=== PATIENT | male | born 1985 | race Caucasian/White ===

== ENCOUNTER 2018-05-02 14:26 | Emergency (ER) | payer OTHER ==
[~2018-05-02] VITALS: Ht 162.6 cm; Wt 61.2 kg
[2018-05-02 14:35] VITALS: BP 119/79
[2018-05-02] MEDS ORDERED: KETOROLAC 60 MG/2 ML VIAL IM ONE (15:20)
--- NOTE | 2018-05-02 15:38 | NUR ---
PATIENT CAME IN THE ER COMPLAINING OF RIGHT LOWER BACK PAIN. 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 PATIENT HAS DIFFICULTY BENDING AND LIFTING. WHEN ASSESSED, PATIENT HAD NO PAIN TO TOUGH.HE STATES HE IS REALLY UNCONFORTABLE. HE HAS A PAIN LEVEL OF 10/10. PATIENT IS ALERT AND ORIENTED XS 4. PATIENTS MEDICAL HISTORY IS HIGH CHOLESTEROL.
--- NOTE | 2018-05-02 15:44 | NUR ---
MEDICATED ORDERED, WILLMONITOR FOR ADVERSE SIDE EFFECTS.
[2018-05-02 16:21] VITALS: BP 129/80
--- NOTE | 2018-05-02 16:30 | NUR ---
Patient discharged with v/s stable. Written and verbal after care instructions given and explained. Patient alert, oriented and verbalized understanding of instructions. Ambulatory with steady gait. All questions addressed prior to discharge. ID band removed. Patient advised to follow up with PMD. Rx of ROBAXIN,IBUPROFEN given. Patient educated on indication of medication including possible reaction and side effects. Opportunity to ask questions provided and answered.
== END 2018-05-02 16:30 | disposition home or self-care (01) ==
LOC: MED 14:26
DX: M54.5 Low back pain (principal)
CPT/HCPCS: 96372; 99283; J1885

== ENCOUNTER 2018-05-05 12:14 | Emergency (ER) | payer OTHER ==
[~2018-05-05] VITALS: Ht 162.6 cm; Wt 68.0 kg
[2018-05-05 12:19] VITALS: BP 121/79
[2018-05-05] MEDS ORDERED: KETOROLAC 60 MG/2 ML VIAL IM ONE (12:50)
[2018-05-05] MEDS ORDERED: LORazepam 2 MG/ML VIAL IM ONE (12:50)
[2018-05-05] MEDS ORDERED: LACTULOSE 20 GM/30 ML UDC PO ONE (12:50)
[2018-05-05 14:30] VITALS: BP 123/76
[2018-05-05 14:58] LABS: BARBITURATE, URINE NEG. ng/ml (NEG <=200); BENZODIAZEPINE, URINE NEG. ng/mL (NEG <=200); CANNABINOID, URINE NEG. ng/mL (NEG <=50); COCAINE, URINE NEG. ng/mL (NEG <=300); OPIATE, URINE NEG. ng/mL (NEG <=2000); PHENCYCLIDINE SCREEN,URINE NEG. ng/mL (NEG <=25)
== END 2018-05-05 14:30 | disposition home or self-care (01) ==
LOC: MED 12:14
DX: G89.29 Other chronic pain (principal); M54.5 Low back pain
CPT/HCPCS: 72100; 80305; 96372; 99285; J1885; J2060

== ENCOUNTER 2020-12-16 16:20 | Emergency (ER) | payer OTHER ==
[~2020-12-16] VITALS: Ht 170.2 cm; Wt 76.2 kg
[2020-12-16 16:25] VITALS: BP 132/92
[2020-12-16] MEDS ORDERED: NACL 0.9% 1,000 ML IV ONE (16:50)
[2020-12-16 17:03] LABS: BASOPHILS % (AUTO) 0.4 % (0.0-2.0); EOSINOPHILS % (AUTO) 0.3 % (0.0-4.0); HEMATOCRIT 45.1 % (36-52); HEMOGLOBIN 15.4 g/dL (12.0-18.0); LYMPHOCYTES # (AUTO) 0.4 K/uL (2.0-11.5); LYMPHOCYTES % (AUTO) 3.9 % (20.5-51.1); MEAN CORPUSCULAR HEMOGLOBIN 30 pg (27-31); MEAN CORPUSCULAR HGB CONC 34 g/dL (33-37); MEAN CORPUSCULAR VOLUME 88.4 fL (80-94); MONOCYTES % (AUTO) 8.8 % (1.7-9.3); NEUTROPHILS # (AUTO) 9.6 K/uL (1.8-7.7); NEUTROPHILS % (AUTO) 86.6 % (42.2-75.2); PLATELET COUNT (AUTO) 252 K/uL (140-450); RED CELL DISTRIBUTION WIDTH 12.9 % (11.6-13.7); WHITE BLOOD COUNT (AUTO) 11.1 K/uL (4.8-10.8)
[2020-12-16 17:13] LABS: PROTHROMBIN TIME 10.3 secs (10.8-13.4)
[2020-12-16 17:17] LABS: ALBUMIN 4.4 g/dL (3.4-5.0); ANION GAP 13.6 (8-16); CARBON DIOXIDE 27.5 mmol/L (21-32); CREATININE 1.1 mg/dL (0.6-1.3); POTASSIUM 4.1 mmol/L (3.5-5.1); TOTAL BILIRUBIN 0.3 mg/dL (0.0-1.0)
[2020-12-16] MEDS ORDERED: METOPROLOL 5 MG/5 ML VIAL IVP ONE (19:05)
[2020-12-16] MEDS ORDERED: METOPROLOL 25 MG TAB PO ONE (19:05)
[2020-12-16 19:22] LABS: BARBITURATE, URINE NEGATIVE ng/ml (NEG <=200); BENZODIAZEPINE, URINE NEGATIVE ng/mL (NEG <=200); CANNABINOID, URINE NEGATIVE ng/mL (NEG <=50); COCAINE, URINE NEGATIVE ng/mL (NEG <=300); OPIATE, URINE NEGATIVE ng/mL (NEG <=2000); PHENCYCLIDINE SCREEN,URINE NEGATIVE ng/mL (NEG <=25)
[2020-12-16 19:31] LABS: FREE T4 (FREE THYROXINE) 0.87 ng/dL (0.76-1.46); THYROID STIMULATING HORMONE 0.72 uIU/mL (0.34-3.74)
[2020-12-16 20:38] VITALS: BP 140/89
== END 2020-12-16 20:30 | disposition home or self-care (01) ==
LOC: MED 16:20
DX: R00.0 Tachycardia, unspecified (principal); G89.29 Other chronic pain; M54.9 Dorsalgia, unspecified; E78.00 Pure hypercholesterolemia, unspecified
CPT/HCPCS: 36415; 71045; 71275; 80053; 80305; 83880; 84439; 84443; 84484; 85025; 85379; 85610; 85730; 93005; 96360; 99285; J3490; J7030; Q9967